=== PATIENT | female | born 1945 | race Caucasian/White ===

== ENCOUNTER 2023-12-05 15:09 | Inpatient (IN) | payer MEDICARE ==
[~2023-12-05] VITALS: Ht 172.7 cm; Wt 103.0 kg
[2023-12-05] MEDS: ONDANSETRON 4MG 2ML VIAL IV ONE (16:05)
[2023-12-05] MEDS: MORPHINE 4 MG/ML 1ML VIAL IV PRN (16:06)
[2023-12-05] MEDS: NS 1,000 ML IV SCH (16:07)
[2023-12-05 16:23] LABS: BASO # 0.1 10^3/uL (0.0-0.2); BASO % 0.7 % (0.0-1.0); EOS # 0.2 10^3/uL (0.0-0.5); EOS % 1.4 % (0.0-3.0); HEMATOCRIT 38.5 % (36.0-47.0); HEMOGLOBIN 12.5 g/dl (12.0-15.5); LYMPH # 1.8 10^3/uL (1.5-5.0); LYMPH % 10.1 % (24.0-44.0); MEAN CORPUSCULAR HEMOGLOBIN 31.2 pg (27.0-33.0); MEAN CORPUSCULAR HGB CONC 32.5 g/dl (32.0-36.5); MONO # 1.3 10^3/uL (0.0-0.8); MONO % 7.4 % (2.0-8.0); NEUTROPHILS # 14.1 10^3/uL (1.5-8.5); NEUTROPHILS % 79.9 % (36.0-66.0); PLATELET COUNT, AUTOMATED 318 10^3/uL (150-450); RED BLOOD COUNT 4.01 10^6/uL (4.00-5.40); WHITE BLOOD COUNT 17.6 10^3/uL (4.0-10.0)
[2023-12-05 16:51] LABS: ALKALINE PHOSPHATASE 76 U/L (46-116); ALT/SGPT 21 U/L (7.0-40); AST/SGOT 38 U/L (<34); BILIRUBIN,DIRECT < 0.1 MG/DL (<0.4); BILIRUBIN,TOTAL 0.2 MG/DL (0.3-1.2); BLOOD UREA NITROGEN 30 MG/DL (9-23); CALCIUM LEVEL 8.8 MG/DL (8.3-10.6); CARBON DIOXIDE LEVEL 25 MMOL/L (20-31); CHLORIDE LEVEL 105 MMOL/L (98-107); CREATININE FOR GFR 1.43 MG/DL (0.55-1.30); GLOMERULAR FILTRATION RATE 37.9 (>39); GLUCOSE, FASTING 163 MG/DL (74-106); POTASSIUM SERUM 5.1 MMOL/L (3.5-5.1); SODIUM LEVEL 137 MMOL/L (136-145); TOTAL PROTEIN 7.2 G/DL (5.7-8.2)
[2023-12-05 17:11] LABS: LIPASE > 3500 U/L (12-53)
[2023-12-05] MEDS ORDERED: ISOVUE-370 76% 100ML VIAL As Ordered ONE (17:12)
[2023-12-05] MEDS: MORPHINE 2 MG/ML 1ML VIAL IV ONE (18:19)
[2023-12-05] MEDS ORDERED: MAALOX 30 ML SUSP *UDC PO PRN (19:40)
[2023-12-05] MEDS ORDERED: MOM 30ML SUSPENSION UDC PO PRN (19:40)
[2023-12-05] MEDS ORDERED: HYDROMORPHONE HCL 0.5 MG/ 0.5 ML SYRINGE IV PRN (19:40)
[2023-12-05] MEDS ORDERED: ONDANSETRON 4MG 2ML VIAL IV PRN (19:40)
[2023-12-05] MEDS ORDERED: LISI5TAB11 PO (19:52)
[2023-12-05] MEDS ORDERED: FURO40TA2 PO (19:52)
[2023-12-05] MEDS ORDERED: LEVO25TA5 PO (19:52)
[2023-12-05] MEDS ORDERED: DICY20TA20 PO (19:52)
[2023-12-05] MEDS ORDERED: XALA0.007 OU (19:52)
[2023-12-05] MEDS ORDERED: OMEP40CA5 PO (19:52)
[2023-12-05] MEDS ORDERED: ROSU10TA61 PO (19:52)
[2023-12-05] MEDS ORDERED: FAMO40TA3 PO (19:52)
[2023-12-05] MEDS ORDERED: GABA-282 PO (19:52)
[2023-12-05] MEDS ORDERED: ASPI81TA26 PO (19:53)
[2023-12-05] MEDS ORDERED: VITA-199 PO (19:53)
[2023-12-05] MEDS ORDERED: HOME MED LIST COMPLETE! XX SCH (19:55)
[2023-12-05] MEDS: HYDROMORPHONE HCL 0.5 MG/ 0.5 ML SYRINGE IV ONE (20:29)
[2023-12-05] MEDS: LR 1,000 ML IV SCH (20:29)
[2023-12-05 21:33] LABS: INR 1.1; PARTIAL THROMBOPLASTIN TIME 26.4 SECONDS (24.8-34.2); PROTHROMBIN TIME 13.9 SECONDS (12.5-14.5)
[2023-12-05 21:34] VITALS: BP 140/85; TEMP 96.8; TEMP 98.6; O2SAT 96
[2023-12-05 21:43] LABS: C REACTIVE PROTEIN QUANTITATIV 0.7 MG/DL (<1.0)
[2023-12-05 21:51] LABS: PROCALCITONIN 0.13 ng/ml
[2023-12-05] MEDS: DOCUSATE SODIUM 100MG CAPSULE PO SCH (21:57)
[2023-12-05] MEDS: KETOROLAC 30 MG/ML 1ML VIAL IV SCH (21:58)
[2023-12-06] MEDS: HYDROMORPHONE HCL 0.5 MG/ 0.5 ML SYRINGE IV PRN (00:17)
[2023-12-06 04:19] VITALS: BP 126/75; TEMP 97.9; O2SAT 92
[2023-12-06 07:15] LABS: HEMATOCRIT 33.6 % (36.0-47.0); HEMOGLOBIN 10.8 g/dl (12.0-15.5); MEAN CORPUSCULAR HEMOGLOBIN 31.1 pg (27.0-33.0); MEAN CORPUSCULAR HGB CONC 32.1 g/dl (32.0-36.5); MEAN CORPUSCULAR VOLUME 96.8 fl (80.0-96.0); PLATELET COUNT, AUTOMATED 245 10^3/uL (150-450); RED BLOOD COUNT 3.47 10^6/uL (4.00-5.40); WHITE BLOOD COUNT 9.3 10^3/uL (4.0-10.0)
[2023-12-06 07:48] LABS: ALBUMIN 3.2 G/DL (3.2-5.2); BILIRUBIN,TOTAL 0.3 MG/DL (0.3-1.2); CALCIUM LEVEL 8.1 MG/DL (8.3-10.6); CREATININE FOR GFR 1.78 MG/DL (0.55-1.30); GLOMERULAR FILTRATION RATE 29.4 (>39); MAGNESIUM LEVEL 2.2 MG/DL (1.8-2.4); POTASSIUM SERUM 4.7 MMOL/L (3.5-5.1); TOTAL PROTEIN 5.7 G/DL (5.7-8.2)
[2023-12-06] MEDS: ENOXAPARIN 40MG/0.4ML SYRINGE (J1650 PER 10MG) SC SCH (08:48)
[2023-12-06 12:00] VITALS: BP 175/81; TEMP 97.9; O2SAT 97
[2023-12-06] MEDS: ACETAMINOPHEN TAB 650MG DOSE (2X325MG) PO PRN (12:27)
[2023-12-06 12:32] VITALS: BP 161/72
[2023-12-06 12:49] VITALS: BP 161/72
[2023-12-06] MEDS: amLODIPine 5 MG TAB PO SCH (12:49)
[2023-12-06 13:48] LABS: CALCIUM LEVEL 8.4 MG/DL (8.3-10.6); CREATININE FOR GFR 1.65 MG/DL (0.55-1.30); GLOMERULAR FILTRATION RATE 32.1 (>39); POTASSIUM SERUM 4.5 MMOL/L (3.5-5.1)
[2023-12-06] MEDS ORDERED: AMLO1TAB24 PO (14:03)
[2023-12-06] MEDS ORDERED: ONDA-282 PO (14:03)
[2023-12-06] MEDS ORDERED: FENO145T7 PO (14:03)
[2023-12-06 14:04] VITALS: BP 140/72
[2023-12-06] MEDS ORDERED: METR-265 PO (15:44)
[2023-12-06] MEDS ORDERED: CIPR-249 PO (15:44)
== END 2023-12-06 15:25 | disposition home or self-care (01) | DRG 439 ==
LOC: EDBD 15:09 → M ED 15:09 → M ED INP 19:37 → M MSPAV 21:34
PROVIDERS: ADMIT Family Medicine; ATTEND Hospitalist
DX: K85.90 Acute pancreatitis without necrosis or infection, unspecified (principal); N17.9 Acute kidney failure, unspecified; Z85.3 Personal history of malignant neoplasm of breast; I10 Essential (primary) hypertension; E78.1 Pure hyperglyceridemia; R91.1 Solitary pulmonary nodule; Z91.030 Bee allergy status; Z79.899 Other long term (current) drug therapy; Z79.82 Long term (current) use of aspirin